=== PATIENT | female | born 1990 | race Caucasian/White ===

== ENCOUNTER 2025-06-04 10:21 | Day surgery (SDC) | payer BC, OTHER ==
[2025-06-03 13:56] VITALS: BMI 20.8
== END 2025-06-04 13:24 | disposition home or self-care (01) ==
LOC: CSHSDC 10:21
PROVIDERS: ATTEND Otolaryngology Plastic Surgery within the Head & Neck
PROC: 09PE0SZ Removal of Hearing Device from Left Inner Ear, Open Approach (ICD-10-PCS; principal; 2025-06-04)
DX: H90.42 Sensorineural hearing loss, unilateral, left ear, with unrestricted hearing on the contralateral side (principal); Z96.9 Presence of functional implant, unspecified; Z88.1 Allergy status to other antibiotic agents; Z88.0 Allergy status to penicillin
CPT/HCPCS: J2250

== ENCOUNTER 2025-07-03 09:34 | Outpatient (CLI) | payer BC | END 2025-07-03 09:35 | disposition home or self-care (01) | LOC: CSHMAMMO 09:34 | PROVIDERS: ATTEND Family Medicine | DX: N63.10 Unspecified lump in the right breast, unspecified quadrant (principal) | CPT/HCPCS: 77066; G0279 ==